=== PATIENT | male | born 1940 | race Caucasian/White ===

== ENCOUNTER 2021-09-21 19:11 | Emergency (ER) | payer MEDICARE | END 2021-09-21 19:56 | disposition home or self-care (01) | LOC: BURERS 19:11 | DX: S76.811A Strain of other specified muscles, fascia and tendons at thigh level, right thigh, initial encounter (principal); I10 Essential (primary) hypertension; Z86.711 Personal history of pulmonary embolism; X50.9XXA Other and unspecified overexertion or strenuous movements or postures, initial encounter | CPT/HCPCS: 99283 ==